=== PATIENT | female | born 1980 | race Caucasian/White ===

== ENCOUNTER 2017-04-28 03:32 | Emergency (ER) | payer OTHER ==
[2017-04-28 04:28] VITALS: BMI 30.9
[2017-04-28] MEDS ORDERED: SODIUM CHLORIDE 1,000 ML IV STA (04:28)
--- NOTE | 2017-04-28 04:28 | PDOC ---
History of Present Illness - General Chief Complaint: Nausea/Vomiting Stated Complaint: VOMITING Time Seen by Provider: 04/28/17 04:23 History Source: Patient Exam Limitations: No Limitations - History of Present Illness Travel History: No Initial Comments: 04/28/17 04:26 36-year-old female with no medical history presents to the emergency department complaining of right upper quadrant abdominal discomfort. Pain is described as 8 /10 dull nonradiating intermittent discomfort with nausea and chills but denies fever, vomiting, headaches, dizziness, lightheadedness, neck pain, back pains, chest pain, shortness of breath, flank pains, urinary symptoms. There are no alleviating or exacerbating factors. LMP x3 weeks Timing/Duration: reports: intermittent Abdominal Pain Onset Location: reports: RLQ Past History - Past Medical History Allergies/Adverse Reactions: Allergies Allergy/AdvReac Type Severity Reaction Status Date / Time No Known Allergies Allergy Verified 04/28/17 04:27 Home Medications: Ambulatory Orders Phentermine HCl [Adipex-P] 30 mg PO DAILY 12/23/11 Doxycycline Monohydrate [Doxycycline] 100 mg PO BID #14 tablet 12/24/11 Methylergonovine Maleate [Methergine] 0.2 mg PO DAILY #0 tablet 12/24/11 - Reproductive History (#): 6 Para: 2 Therapeutic (s) & number: Yes (on 11/28/11) - Suicide/Smoking/Psychosocial Hx Smoking Status: No Smoking History: Never smoked Number of Cigarettes Smoked Daily: 0 Drug/Substance Use Hx: No Substance Use Type: None Review of Systems - Review of Systems Able to Perform ROS?: Yes Comments:: 04/28/17 04:27 CONSTITUTIONAL: Absent: fever, chills, diaphoresis, generalized weakness, malaise, loss of appetite HEENT: Absent: rhinorrhea, nasal congestion, throat pain, throat swelling, difficulty swallowing, mouth swelling, ear pain, eye pain, visual Changes CARDIOVASCULAR: Absent: chest pain, loss of consciousness, palpitations, irregular heart rate, peripheral edema RESPIRATORY: Absent: cough, shortness of breath, dyspnea with exertion, orthopnea, wheezing, stridor, hemoptysis GASTROINTESTINAL: +RUQ pain Absent: abdominal distension, nausea, vomiting, diarrhea, constipation, melena , hematochezia GENITOURINARY: Absent: dysuria, frequency, urgency, hesitancy, hematuria, flank pain, genital pain MUSCULOSKELETAL: Absent: myalgia, arthralgia, joint swelling SKIN: Absent: rash, itching, pallor HEMATOLOGIC/IMMUNOLOGIC: Absent: easy bleeding, easy bruising, lymphadenopathy, frequent infections ENDOCRINE: Absent: unexplained weight gain, unexplained weight loss, heat intolerance, cold intolerance NEUROLOGIC: Absent: headache, focal weakness or paresthesias, dizziness, unsteady gait, seizure, mental status changes, bladder or bowel incontinence PSYCHIATRIC: Absent: anxiety, depression, suicidal or homicidal ideation, hallucinations. Is the patient limited Haitian proficient: No *Physical Exam - Physical Exam Comments: 04/28/17 04:27 GENERAL: Well developed, well nourished. Awake and alert. No acute distress. HEENT: Normocephalic, atraumatic. PERRLA, EOMI. No conjunctival pallor. Sclera are non- icteric. Moist mucous membranes. Oropharynx is clear. NECK: Supple. Full ROM. No JVD. Carotid pulses 2+ and symmetric, without bruits. No thyromegaly. No lymphadenopathy. CARDIOVASCULAR: Regular rate and rhythm. No murmurs, rubs, or gallops. Distal pulses are 2+ and symmetric. PULMONARY: No evidence of respiratory distress. Lungs clear to auscultation bilaterally. No wheezing, rales or rhonchi. ABDOMINAL: +RUQ pain Soft. Non-distended. No rebound or guarding. No organomegaly. Normoactive bowel sounds. MUSCULOSKELETAL Normal range of motion at all joints. No bony deformities or tenderness. No CVA tenderness. EXTREMITIES: No cyanosis. No clubbing. No edema. No calf tenderness. SKIN: Warm and dry. Normal capillary refill. No rashes. No jaundice. NEUROLOGICAL: Alert, awake, appropriate. Cranial nerves 2-12 intact. No deficits to light touch and temperature in face, upper extremities and lower extremities. No motor deficits in the in face, upper extremities and lower extremities. Normoreflexic in the upper and lower extremities. Normal speech. Toes are down- going bilaterally. Gait is normal without ataxia. PSYCHIATRIC: Cooperative. Good eye contact. Appropriate mood and affect. ED Treatment Course - LABORATORY CBC & Chemistry Diagram: 04/28/17 04:10 04/28/17 04:10 Progress Note - Progress Note Progress Note: 0700hrs: Signed out to GUNNAR Peres *DC/Admit/Observation/Transfer Diagnosis at time of Disposition: Abdominal pain, Gastroenteritis - Discharge Dispostion Disposition: HOME Condition at time of disposition: Improved - Referrals - Patient Instructions Printed Discharge Instructions: Viral Gastroenteritis Additional Instructions: Rest, maintain adequate hydration and take Motrin or Tylenol as needed for pain. - Post Discharge Activity Forms/Work/School Notes: Back to Work
[2017-04-28 04:52] LABS: BASOPHIL 0.2 % (0-2.0); EOSINOPHIL 0.4 % (0-4.5); MCH 26.8 pg (25.7-33.7); MCHC 33.3 g/dl (32.0-36.0); MEAN CELL VOLUME 80.6 fl (80-96); MEAN PLT VOLUME 8.1 fl (7.5-11.1); NEUTROPHILS 91.3 % (42.8-82.8); PLATELET COUNT 224 K/MM3 (134-434); RDW 14.2 % (11.6-15.6)
[2017-04-28 05:26] LABS: URINE APPEARANCE SLCLOUDY; URINE BILIRUBIN NEGATIVE (NEGATIVE); URINE BLOOD NEGATIVE (NEGATIVE); URINE COLOR YELLOW; URINE GLUCOSE (UA) NEGATIVE (NEGATIVE); URINE KETONE NEGATIVE (NEGATIVE); URINE LEUK ESTERASE NEGATIVE (NEGATIVE); URINE NITRITE NEGATIVE (NEGATIVE); URINE UROBILINOGEN NEGATIVE mg/dL (0.2-1.0)
[2017-04-28 05:28] LABS: URINE PROTEIN 2+ (NEGATIVE)
[2017-04-28 05:29] LABS: ALBUMIN 4.1 g/dl (3.4-5.0); ALK PHOS 80 U/L (45-117); AMYLASE 53 U/L (25-115); ANION GAP 8 (8-16); BILIRUBIN,TOTAL 0.5 mg/dL (0.2-1.0); CALCIUM 9.1 mg/dL (8.5-10.1); CO2 30 mmol/L (21-32); CREATININE 0.8 mg/dL (0.55-1.02); GLUCOSE,RANDOM 111 mg/dL (74-106); SGOT/AST 22 U/L (15-37); SGPT/ALT 44 U/L (12-78); TOT PROT 7.5 g/dl (6.4-8.2)
[2017-04-28 05:59] LABS: URINE MUCUS RARE; URINE RBC <1 /hpf (0-3); URINE WBC <1 /hpf (3-5)
--- NOTE | 2017-04-28 07:14 | PDOC ---
*Physical Exam - Vital Signs Last Vital Signs Temp Pulse Resp BP Pulse Ox 121 H 14 132/77 100 04/28/17 04:27 04/28/17 04:27 04/28/17 04:27 04/28/17 04:27 - Physical Exam General Appearance: Yes: Nourished, Appropriately Dressed. No: Apparent Distress HEENT: positive: Normal Voice Neck: positive: Supple Respiratory/Chest: negative: Respiratory Distress Gastrointestinal/Abdominal: positive: Soft Musculoskeletal: negative: CVA Tenderness Integumentary: positive: Dry, Warm Neurologic: positive: Fully Oriented, Alert, Normal Mood/Affect ED Treatment Course - LABORATORY CBC & Chemistry Diagram: 04/28/17 04:10 04/28/17 04:10 - ADDITIONAL ORDERS Additional order review: Laboratory Results 04/28/17 04/28/17 05:14 04:10 Sodium 142 Potassium 4.4 D Chloride 104 Carbon Dioxide 30 Anion Gap 8 BUN 20 H D Creatinine 0.8 D Creat Clearance w eGFR > 60 Random Glucose 111 H D Calcium 9.1 Total Bilirubin 0.5 D AST 22 D ALT 44 D Alkaline Phosphatase 80 D Total Protein 7.5 Albumin 4.1 Total Amylase 53 Lipase 116 Urine Color Yellow Urine Appearance Slcloudy Urine pH 8.0 Ur Specific [place] 1.024 Urine Protein 2+ H Urine Glucose (UA) Negative Urine Ketones Negative Urine Blood Negative Urine Nitrite Negative Urine Bilirubin Negative Urine Urobilinogen Negative Urine WBC (Auto) <1 Urine RBC (Auto) <1 Ur Epithelial Cells Moderate Urine Mucus Rare Urine HCG, Qual Negative 04/28/17 04:10 RBC 5.41 H D MCV 80.6 MCHC 33.3 RDW 14.2 D MPV 8.1 Neutrophils % 91.3 H D Lymphocytes % 4.6 L D Monocytes % 3.5 L Eosinophils % 0.4 Basophils % 0.2 - Medications Given in the ED: ED Medications Discontinued Medications Generic Name Dose Route Start Last Admin Trade Name Freq PRN Reason Stop Dose Admin Sodium Chloride 1,000 mls @ 1,000 mls/hr 04/28/17 04:28 04/28/17 04:53 Normal Saline - IV 04/28/17 05:27 1,000 mls/hr ASDIR STA Administration Medical Decision Making - Medical Decision Making 04/28/17 07:13 Received signout at 7 AM Patient is a 36-year-old female, no significant history with right upper quadrant pain. Labs within normal limits. Patient had CT with results pending. As per prior team if CT negative, can be discharged 04/28/17 08:56 CT read as nonspecific gastroenteritis. Patient does report one or 2 episodes of diarrhea last night. Feels well enough to go home and was able to tolerate tolerate po in ED. Dc with supportive treatment and PMD follow-up as needed *DC/Admit/Observation/Transfer Diagnosis at time of Disposition: Gastroenteritis Abdominal pain Qualifiers: Abdominal location: upper abdomen, unspecified Qualified Code(s): R10.10 - Upper abdominal pain, unspecified - Discharge Dispostion Disposition: HOME Condition at time of disposition: Improved - Referrals - Patient Instructions Printed Discharge Instructions: Viral Gastroenteritis Additional Instructions: Rest, maintain adequate hydration and take Motrin or Tylenol as needed for pain. - Post Discharge Activity Forms/Work/School Notes: Back to Work
[2017-04-28 07:28] VITALS: BP 130/70; PULSE 92; TEMP 98.3
[2017-04-28] MEDS ORDERED: IBUPROFEN 400 MG TABLET (FP) PO ONE (08:59)
[2017-04-28 12:25] LABS: URINE LEUK ESTERASE Negative (NEGATIVE)
== END 2017-04-28 09:12 | disposition home or self-care (01) ==
LOC: JER 03:32
PROC: 3E0337Z Introduction of Electrolytic and Water Balance Substance into Peripheral Vein, Percutaneous Approach (ICD-10-PCS; principal; 2017-04-28)
DX: K52.9 Noninfective gastroenteritis and colitis, unspecified (principal)
CPT/HCPCS: 36415; 74177-TC; 80053; 81003; 81015; 82150; 83690; 84703; 85025; 96360; 99283-25

== ENCOUNTER 2017-09-27 21:32 | Emergency (ER) | payer SELFPAY ==
[2017-09-27] MEDS ORDERED: DIPHTH,PERTUSS(ACELL),TET 0.5 ML DISP.SYRIN IM ONE (21:49)
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
[2017-09-27 21:51] VITALS: BP 134/88; PULSE 89; TEMP 97.9; BMI 25.9
[2017-09-27] MEDS ORDERED: IBUPROFEN 600 MG TABLET (FP) PO ONE ×2 (22:14→22:39)
[2017-09-27] MEDS ORDERED: BACITRACIN 15 GM TUBE TOPICAL OINTMENT ONE (22:40)
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
[2017-09-27] MEDS ORDERED: BACITRACIN 15 GM TUBE TOPICAL OINTMENT TP ONE (22:49)
== END 2017-09-27 22:53 | disposition home or self-care (01) ==
LOC: JERFT 21:32
PROC: 3E0234Z Introduction of Serum, Toxoid and Vaccine into Muscle, Percutaneous Approach (ICD-10-PCS; principal; 2017-09-27)
DX: T25.022A Burn of unspecified degree of left foot, initial encounter (principal); X12.XXXA Contact with other hot fluids, initial encounter; Y93.89 Activity, other specified; Y92.129 Unspecified place in nursing home as the place of occurrence of the external cause; Y99.0 Civilian activity done for income or pay
CPT/HCPCS: 90715; 99281-25

== ENCOUNTER 2020-12-03 05:23 | Day surgery (SDC) | payer OTHER ==
[2020-12-01 11:58] VITALS: BMI 32.9
[2020-12-03] MEDS ORDERED: SUCCINYLCHOLINE CHLORIDE 200 MG/10 ML SYRINGE ONE (13:40)
[2020-12-03] MEDS ORDERED: PROPOFOL 20 ML ONE ×4 (13:40→14:01)
[2020-12-03] MEDS ORDERED: MIDAZOLAM HCL 2 MG/2 ML SINGLE DOSE VIAL ONE (13:40)
[2020-12-03] MEDS ORDERED: ceFAZolin SODIUM 1 GM VIAL ONE (14:02)
[2020-12-03] MEDS ORDERED: ceFAZolin 2 GRAM PREMIX BAG IVPB ONE (14:05)
[2020-12-03] MEDS ORDERED: ONDANSETRON 4 MG/2 ML VIAL IVPUSH PRN ×2 (14:21→14:44)
[2020-12-03] MEDS ORDERED: oxyCODONE HCL 5 MG TABLET PO PRN ×3 (14:21→14:44)
[2020-12-03] MEDS ORDERED: PROMETHAZINE HCL 25 MG/1 ML VIAL IVPUSH PRN (14:21)
[2020-12-03] MEDS ORDERED: IBUPROFEN 800 MG/8 ML IJ IVPB PRN (14:44)
[2020-12-03] MEDS ORDERED: IBUPROFEN 600 MG TABLET (FP) PO PRN (14:44)
[2020-12-03] MEDS ORDERED: ELECTROLYTE-148 SOLN 1,000 ML IV SCH (14:45)
[2020-12-03] MEDS ORDERED: IBUPROFEN 600 MG TABLET (FP) PO ONE ×2 (15:51→15:54)
[2020-12-03 17:17] VITALS: BP 119/76; PULSE 82; TEMP 98.2
== END 2020-12-03 17:00 | disposition home or self-care (01) ==
LOC: JASU-SURG 05:23
PROVIDERS: ATTEND Obstetrics & Gynecology
PROC: 10D17ZZ Extraction of Products of Conception, Retained, Via Natural or Artificial Opening (ICD-10-PCS; principal; 2020-12-03 14:00)
DX: O02.1 Missed abortion (principal)
CPT/HCPCS: 88305-TC; 94760

== ENCOUNTER 2022-01-10 08:00 | Inpatient (IN) | payer OTHER ==
[2022-01-10] MEDS ORDERED: CITRIC ACID/SODIUM CITRATE 30 ML UNIT-DOSE CUP PO ONE (09:20)
[2022-01-10] MEDS ORDERED: ELECTROLYTE-148 SOLN 1,000 ML IV SCH (09:30)
[2022-01-10] MEDS ORDERED: ePHEDrine SULFATE 50 MG/1 ML AMPULE ONE (09:54)
[2022-01-10] MEDS ORDERED: morphine SULFATE/PF 1 MG/2 ML (2cc Syringe - QUVA) ONE (09:54)
[2022-01-10 10:13] VITALS: BMI 40.1
[2022-01-10 11:43] LABS: CORD BASE EXCESS -1.5 mmol/L (0-2); CORD HCO3 25.4 mmHg (20-29); CORD PCO2 51.2 mmHg (30-78); CORD pH 7.313 (7.14-7.44)
[2022-01-10 11:48] LABS: CORD BASE EXCESS -1.6 mmol/L (0-2); CORD HCO3 25.6 mmHg (20-29); CORD pH 7.301 (7.14-7.44)
[2022-01-10] MEDS ORDERED: METHYLERGONOVINE MALEATE 0.2 MG/1 ML AMP IM PRN (11:48)
[2022-01-10] MEDS ORDERED: ONDANSETRON 4 MG/2 ML VIAL IVPUSH PRN (12:17)
[2022-01-10] MEDS ORDERED: morphine SULFATE/PF 1 MG/2 ML (2cc Syringe - QUVA) EP ONE (12:17)
[2022-01-10] MEDS ORDERED: ACETAMINOPHEN INJECTION 100 ML IVPB ONE (13:53)
[2022-01-10] MEDS ORDERED: OXYTOCIN 20 UNITS in 0.9% NS 20 UNIT/1,000 ML INFUS.BAG IV ONE (14:23)
[2022-01-10] MEDS: OXYTOCIN 20 UNITS in 0.9% NS 20 UNIT/1,000 ML INFUS.BAG IV SCH ×2 (14:26→21:39)
[2022-01-10] MEDS ORDERED: ACETAMINOPHEN 1000 MG/100 ML BAG IVPB PRN ×2 (14:29→20:00)
[2022-01-11] MEDS: SIMETHICONE 80 MG TAB.CHEW (FP) PO PRN ×3 (07:30→20:22)
[2022-01-11] MEDS: IBUPROFEN 600 MG TABLET (FP) PO PRN ×2 (07:30→20:21)
[2022-01-11 08:49] LABS: BASO % 0.2 % (0-2.0); EOS % 0.3 % (0-4.5); HEMATOCRIT 34.7 % (32.4-45.2); HEMOGLOBIN 11.2 GM/dL (10.7-15.3); LYMPH % 12.8 % (8-40); MCH 26.1 pg (25.7-33.7); MCHC 32.3 g/dl (32.0-36.0); MEAN PLT VOLUME 8.9 fl (7.5-11.1); MONO % 4.9 % (3.8-10.2); NEUT % 81.8 % (42.8-82.8); PLATELET COUNT 185 10^3/uL (134-434); RBC 4.29 M/mm3 (3.60-5.2); RDW 14.9 % (11.6-15.6); WHITE BLOOD COUNT 10.4 K/mm3 (4.0-10.0)
[2022-01-11] MEDS: ENOXAPARIN NA (PORCINE) 40 MG/0.4 ML DISP.SYRIN SQ SCH (09:49)
[2022-01-11] MEDS ORDERED: BISACODYL 10 MG SUPP.RECT RC PRN (11:50)
[2022-01-11] MEDS: oxyCODONE HCL 5 MG TABLET PO PRN ×2 (13:51→23:29)
[2022-01-11] MEDS ORDERED: diphenhydrAMINE HCL 25 MG CAPSULE (FP) PO PRN (14:06)
[2022-01-12] MEDS: SIMETHICONE 80 MG TAB.CHEW (FP) PO PRN ×3 (05:05→21:25)
[2022-01-12] MEDS: oxyCODONE HCL 5 MG TABLET PO PRN ×2 (05:05→21:25)
[2022-01-12] MEDS: IBUPROFEN 600 MG TABLET (FP) PO PRN ×3 (08:07→23:17)
[2022-01-12] MEDS: ENOXAPARIN NA (PORCINE) 40 MG/0.4 ML DISP.SYRIN SQ SCH (09:25)
[2022-01-13] MEDS: IBUPROFEN 600 MG TABLET (FP) PO PRN ×2 (05:44→16:41)
[2022-01-13] MEDS: SIMETHICONE 80 MG TAB.CHEW (FP) PO PRN ×3 (05:44→22:14)
[2022-01-13 08:03] LABS: BASO % 0.5 % (0-2.0); EOS % 1.3 % (0-4.5); HEMATOCRIT 35.5 % (32.4-45.2); HEMOGLOBIN 11.3 GM/dL (10.7-15.3); LYMPH % 11.7 % (8-40); MCH 25.8 pg (25.7-33.7); MCHC 31.9 g/dl (32.0-36.0); MEAN CELL VOLUME 80.9 fl (80-96); MEAN PLT VOLUME 8.3 fl (7.5-11.1); MONO % 4.8 % (3.8-10.2); NEUT % 81.7 % (42.8-82.8); PLATELET COUNT 208 10^3/uL (134-434); RBC 4.38 M/mm3 (3.60-5.2); RDW 14.7 % (11.6-15.6)
[2022-01-13] MEDS: ENOXAPARIN NA (PORCINE) 40 MG/0.4 ML DISP.SYRIN SQ SCH (10:15)
[2022-01-13] MEDS: ACETAMINOPHEN 325 MG TABLET (FP) PO PRN (10:15)
[2022-01-13] MEDS: oxyCODONE HCL 5 MG TABLET PO PRN (22:14)
[2022-01-14] MEDS: ACETAMINOPHEN 325 MG TABLET (FP) PO PRN (00:02)
[2022-01-14] MEDS: IBUPROFEN 600 MG TABLET (FP) PO PRN ×3 (00:02→09:03)
[2022-01-14] MEDS: SIMETHICONE 80 MG TAB.CHEW (FP) PO PRN ×2 (04:29→09:04)
[2022-01-14] MEDS: ENOXAPARIN NA (PORCINE) 40 MG/0.4 ML DISP.SYRIN SQ SCH (09:03)
[2022-01-14 10:22] VITALS: BP 114/72; PULSE 89; RESP 16; TEMP 98.2
[2022-01-16 15:08] LABS: POC NITRAZINE POS
== END 2022-01-14 12:30 | disposition home or self-care (01) | DRG 788 ==
LOC: JLDR 08:00 → J3W 14:50
PROVIDERS: ADMIT Obstetrics & Gynecology; ATTEND Obstetrics & Gynecology
PROC: 10907ZC Drainage of Amniotic Fluid, Therapeutic from Products of Conception, Via Natural or Artificial Opening (ICD-10-PCS; principal; 2022-01-10)
PROC: 10D00Z1 Extraction of Products of Conception, Low, Open Approach (ICD-10-PCS; 2022-01-10)
PROC: 0DNU0ZZ Release Omentum, Open Approach (ICD-10-PCS; 2022-01-10)
DX: O34.219 Maternal care for unspecified type scar from previous cesarean delivery (principal); O69.89X0 Labor and delivery complicated by other cord complications, not applicable or unspecified; O99.892 Other specified diseases and conditions complicating childbirth; N73.6 Female pelvic peritoneal adhesions (postinfective); K66.0 Peritoneal adhesions (postprocedural) (postinfection); O99.214 Obesity complicating childbirth; E66.01 Morbid (severe) obesity due to excess calories; Z3A.40 40 weeks gestation of pregnancy; Z37.0 Single live birth
CPT/HCPCS: 36415; 36600; 82803; 83986-QW; 85025; 88307-TC

== ENCOUNTER 2022-11-19 22:35 | Inpatient (IN) | payer OTHER ==
[2022-11-19] MEDS ORDERED: PANTOPRAZOLE SODIUM 40 MG VIAL IVPUSH ONE (23:35)
[2022-11-20] MEDS ORDERED: PANTOPRAZOLE SODIUM 40 MG VIAL ONE ×2 (00:02→10:01)
[2022-11-20 00:32] LABS: BASO % 0.8 % (0-2.0); HEMATOCRIT 30.8 % (32.4-45.2); HEMOGLOBIN 9.7 GM/dL (10.7-15.3); LYMPH % 34.5 % (8-40); MCH 24.7 pg (25.7-33.7); MCHC 31.5 g/dl (32.0-36.0); MEAN CELL VOLUME 78.5 fl (80-96); MEAN PLT VOLUME 9.4 fl (7.5-11.1); MONO % 6.2 % (3.8-10.2); NEUT % 57.5 % (42.8-82.8); PLATELET COUNT 179 10^3/uL (134-434); RBC 3.92 M/mm3 (3.60-5.2); RDW 14.6 % (11.6-15.6); WHITE BLOOD COUNT 4.6 K/mm3 (4.0-10.0)
[2022-11-20 00:36] LABS: INR 1.33 (0.83-1.09); PROTHROMBIN TIME (PATIENT) 15.4 SEC (9.7-13.0)
[2022-11-20 00:39] LABS: ACTIVATED PTT 29.6 SECONDS (25.2-36.5)
[2022-11-20 00:46] LABS: POTASSIUM 3.8 mmol/L (3.5-5.1)
[2022-11-20 00:48] LABS: ALBUMIN 3.2 g/dl (3.4-5.0); BLOOD UREA NITROGEN 20.8 mg/dL (7-18); CALCIUM 9.1 mg/dL (8.5-10.1)
[2022-11-20 00:51] LABS: CREATININE 0.6 mg/dL (0.55-1.3)
[2022-11-20 00:53] LABS: BILIRUBIN,TOTAL 0.3 mg/dL (0.2-1); TOT PROT 5.9 g/dl (6.4-8.2)
[2022-11-20] MEDS: LACTATED RINGERS SOLUTION 1,000 ML IV SCH (06:57)
[2022-11-20 08:45] LABS: RETICULOCYTES 1.42 % (0.5-1.5)
[2022-11-20] MEDS: PANTOPRAZOLE SODIUM 40 MG VIAL IVPUSH SCH ×2 (09:59→22:18)
[2022-11-20 10:26] LABS: URINE COLOR YELLOW
[2022-11-20 10:27] LABS: URINE APPEARANCE CLEAR
[2022-11-20 10:28] LABS: URINE BILIRUBIN NEGATIVE (NEGATIVE); URINE GLUCOSE (UA) NEGATIVE (NEGATIVE); URINE KETONE 40 mg/dl (NEGATIVE)
[2022-11-20 10:29] LABS: EPI CELLS 18.4 /uL (0-25.1); HYALINE CASTS 0.58 /uL (0-3.1); URINE BACTERIA 66.5 /uL (0-1359); URINE LEUK ESTERASE NEGATIVE (NEGATIVE); URINE NITRITE NEGATIVE (NEGATIVE); URINE PROTEIN NEGATIVE (NEGATIVE); URINE RBC 14.1 /uL (0-23.9); URINE WBC 12.4 /uL (0-25.8)
[2022-11-21 00:32] VITALS: BMI 33.3
[2022-11-21 08:22] LABS: POTASSIUM 3.6 mmol/L (3.5-5.1)
[2022-11-21 08:35] LABS: BASO % 0.1 % (0-2.0); EOS % 1.7 % (0-4.5); HEMOGLOBIN 8.6 GM/dL (10.7-15.3); MCH 24.9 pg (25.7-33.7); MCHC 31.9 g/dl (32.0-36.0); MEAN CELL VOLUME 78.1 fl (80-96); MEAN PLT VOLUME 9.5 fl (7.5-11.1); MONO % 6.1 % (3.8-10.2); NEUT % 54.1 % (42.8-82.8); PLATELET COUNT 161 10^3/uL (134-434); RBC 3.46 M/mm3 (3.60-5.2); RDW 14.6 % (11.6-15.6); WHITE BLOOD COUNT 2.9 K/mm3 (4.0-10.0)
[2022-11-21 08:38] LABS: ALBUMIN 2.7 g/dl (3.4-5.0)
[2022-11-21 08:39] LABS: CALCIUM 8.5 mg/dL (8.5-10.1)
[2022-11-21 08:40] LABS: BLOOD UREA NITROGEN 7.4 mg/dL (7-18)
[2022-11-21 08:41] LABS: CREATININE 0.5 mg/dL (0.55-1.3)
[2022-11-21 08:42] LABS: BILIRUBIN,TOTAL 0.8 mg/dL (0.2-1)
[2022-11-21] MEDS: PANTOPRAZOLE SODIUM 40 MG VIAL IVPUSH SCH (09:59)
[2022-11-21] MEDS: LACTATED RINGERS SOLUTION 1,000 ML IV SCH (09:59)
[2022-11-21 13:04] VITALS: BP 139/72; PULSE 83; RESP 20; TEMP 98
[2022-11-21] MEDS ORDERED: PANTOPRAZOLE 40 MG TABLET PO SCH (22:00)
== END 2022-11-21 19:13 | disposition home or self-care (01) | DRG 378 ==
LOC: JER 22:35 → JERBED 11-20 04:06 → OBSVTOIN 11-20 05:33 → J7W 11-20 18:43
PROVIDERS: ADMIT Internal Medicine; ATTEND Internal Medicine
PROC: 0DJ08ZZ Inspection of Upper Intestinal Tract, Via Natural or Artificial Opening Endoscopic (ICD-10-PCS; principal; 2022-11-20 11:45)
DX: K92.2 Gastrointestinal hemorrhage, unspecified (principal); D62 Acute posthemorrhagic anemia; K21.00 Gastro-esophageal reflux disease with esophagitis, without bleeding; E66.9 Obesity, unspecified; Z68.33 Body mass index [BMI] 33.0-33.9, adult
CPT/HCPCS: 36415; 74177-TC; 80053; 81003; 82272; 82728; 83540; 83550; 84466; 84703; 85025; 85045; 85610; 85730; 86850; 86900; 86901; 93005; 93010; 99285-25; G0378; Q9967

== ENCOUNTER 2023-01-18 04:24 | Day surgery (SDC) | payer OTHER ==
[2023-01-17 11:12] VITALS: BMI 30.2
== END 2023-01-18 11:20 | disposition home or self-care (01) ==
LOC: JASU-ENDO 04:24
PROVIDERS: ATTEND Internal Medicine Gastroenterology
DX: Z53.8 Procedure and treatment not carried out for other reasons (principal)
CPT/HCPCS: 81025

== ENCOUNTER 2023-04-17 05:18 | Day surgery (SDC) | payer OTHER ==
[2023-04-11 12:14] VITALS: BMI 31.6
[2023-04-17 07:38] VITALS: TEMP 97.8
[2023-04-17 09:21] VITALS: BP 133/39; PULSE 79; RESP 18
== END 2023-04-17 09:20 | disposition home or self-care (01) ==
LOC: JASU-ENDO 05:18
PROVIDERS: ATTEND Internal Medicine Gastroenterology
PROC: 0DB68ZX Excision of Stomach, Via Natural or Artificial Opening Endoscopic, Diagnostic (ICD-10-PCS; 2023-04-17)
PROC: 0DB38ZX Excision of Lower Esophagus, Via Natural or Artificial Opening Endoscopic, Diagnostic (ICD-10-PCS; 2023-04-17)
PROC: 0DB98ZX Excision of Duodenum, Via Natural or Artificial Opening Endoscopic, Diagnostic (ICD-10-PCS; principal; 2023-04-17 08:00)
DX: K21.00 Gastro-esophageal reflux disease with esophagitis, without bleeding (principal); K29.50 Unspecified chronic gastritis without bleeding; Z98.84 Bariatric surgery status; Z87.19 Personal history of other diseases of the digestive system
CPT/HCPCS: 81025; 88305-TC; 88342-TC